=== PATIENT | female | born 1990 | race African-American/Black ===

== ENCOUNTER 2019-04-16 10:50 | Emergency (ER) | payer OTHER ==
[~2019-04-16] VITALS: Ht 165.1 cm; Wt 79.4 kg
[~2019-04-16 10:50] MED LIST: CITRATE OF MAG296 ML PO; COLACE100 MG PO; FLEXERIL PO; MACROBID 100 M100 M1 PO; PHENERGAN 25 MG25 M1 PO; PRENATAL PO; TORADOL 10 MG T10 MG PO
[2019-04-16 11:26] LABS: HEMOGLOBIN 13.8 gm/dL (12.0-15.0); MCH 29.2 pg (26.0-34.0); MCV 88.7 fL (80.0-100.0); RBC 4.74 mil/uL (4.20-5.00); RDW 13.4 % (10.5-14.5); WBC 8.5 thou/uL (4.0-11.0)
[2019-04-16 11:37] LABS: CREATININE 0.8 mg/dL (0.6-1.0); POTASSIUM 3.6 mmol/L (3.5-5.1)
[2019-04-16 11:39] LABS: URINE BILIRUBIN NEGATIVE (Negative); URINE BLOOD NEGATIVE (Negative); URINE CLARITY CLEAR; URINE COLOR YELLOW; URINE GLUCOSE-RANDOM* NEGATIVE (Negative); URINE KETONES TRACE (Negative); URINE LEUKOCYTES-REFLEX NEGATIVE (Negative); URINE PROTEIN (DIPSTICK) NEGATIVE (Negative); URINE SPECIFIC GRAVITY 1.025 (1.005-1.035)
[2019-04-16 11:55] LABS: URINE NITRITE-REFLEX POSITIVE (Negative)
[2019-04-16 12:04] LABS: BACTERIA-REFLEX >30 Many /HPF (None Seen); CASTS None Seen /LPF (None Seen); CRYSTALS None Seen /LPF (None Seen); SQUAMOUS 0-3 Few /LPF (0-3); URINE RBC None Seen /HPF (0-2); URINE WBC-REFLEX 0-5 Rare /HPF (0-5)
[2019-04-16 13:15] VITALS: BP 111/70
== END 2019-04-16 13:15 | disposition home or self-care (01) ==
LOC: ER 10:50
PROVIDERS: Emergency Medicine
DX: O20.9 Hemorrhage in early pregnancy, unspecified (principal); R10.2 Pelvic and perineal pain; Z3A.01 Less than 8 weeks gestation of pregnancy